=== PATIENT | female | born 1955 | race Caucasian/White ===

== ENCOUNTER 2018-03-30 11:34 | Emergency (ER) | payer MEDICARE, BC ==
[2018-03-30] MEDS ORDERED: 0.9 % SODIUM CHLORIDE 1000ML 1,000 ML IV PRN (11:41)
[2018-03-30] MEDS: 0.9 % SODIUM CHLORIDE 500ML 500 ML IV SCH (11:59)
[2018-03-30 12:13] LABS: HEMATOCRIT 45.2 % (35.0-47.0); HEMOGLOBIN 15.2 gm/dl (11.6-16.0); MEAN CELL VOLUME 87.4 fl (81-97); MEAN CORPUSCULAR HEMOGLOBIN 29.4 pg (27-33); MEAN CORPUSCULAR HGB CONC 33.6 g/dl (32-36); MEAN PLATELET VOLUME 11.5 fl (7.4-10.4); PLATELET COUNT 346 K/uL (130-400); RED BLOOD COUNT 5.17 M/uL (3.80-5.40); RED CELL DISTRIBUTION WIDTH 13.2 % (11.5-14.5); URINE APPEARANCE CLOUDY; URINE BILIRUBIN SMALL (NEGATIVE); URINE BLOOD MODERATE (NEGATIVE); URINE COLOR YELLOW; URINE GLUCOSE (UA) NEGATIVE (NEGATIVE); URINE KETONE NEGATIVE (NEGATIVE); URINE LEUKOCYTE ESTERASE MODERATE (NEGATIVE); URINE NITRITE NEGATIVE (NEGATIVE); URINE UROBILINOGEN 0.2 E.U./dL (0.20 - 1.00); WHITE BLOOD COUNT W/O DIFF 15.6 K/uL (4.2-12.2)
[2018-03-30 12:20] LABS: URINE BACTERIA FEW; URINE EPITHELIAL CELLS 0 - 2 (FEW)
[2018-03-30 12:26] LABS: BLOOD UREA NITROGEN 15 mg/dL (8-23); CREATININE 0.9 mg/dL (0.5-0.9); EST GLOMERULAR FILTRATION RATE > 60 mL/min
[2018-03-30 12:27] LABS: TOTAL PROTEIN 6.9 g/dL (6.6-8.7)
--- NOTE | 2018-03-30 12:27 | Emergency Department Record ---
History of Present Illness - General Chief complaint: Allergic Reaction Stated complaint: ALLERGIC REACTION TO MEDS Time Seen by Provider: 03/30/18 11:40 Source: Patient, RN notes reviewed Mode of Arrival: Ambulatory - History of Present Illness Initial Comments: patient is dry in the throat and started bactrim 3 days ago for a UTI and she is concerned it could be a allergic reaction to bactrim. No rash no wheezing and no SOB or chest pain. She has some nausea and no abdominal pain. Onset/Timin -: Days(s) Exposure: Medication Symptoms: Nausea, Vomiting, Other Treatment Prior to Arrival: None - Related Data Home Medications Medication Instructions Recorded Confirmed Last Taken Cyanocobalamin (Vitamin B-12) 5,000 mcg PO DAILY 03/30/18 03/30/18 03/30/18 [Vitamin B-12] Lansoprazole [Prevacid] 30 mg PO DAILY 03/30/18 03/30/18 03/30/18 Lubiprostone [Amitiza] 24 mcg PO DAILY 03/30/18 03/30/18 03/29/18 Morphine Sulfate 30 mg PO Q12HR 03/30/18 03/30/18 03/30/18 Venlafaxine HCl [Effexor Xr] 150 mg PO DAILY 03/30/18 03/30/18 03/29/18 Previous Rx's Medication Instructions Recorded Nitrofurantoin Macrocrystal 100 mg PO BID #20 capsule 03/30/18 [Macrodantin] Allergies Allergy/AdvReac Type Severity Reaction Status Date / Time sulfamethoxazole AdvReac MUSCLE PAIN Verified 03/30/18 11:45 [From Bactrim] trimethoprim [From Bactrim] AdvReac MUSCLE PAIN Verified 03/30/18 11:45 Travel Screening - Travel/Exposure Within Last 30 Days Have you traveled within the last 30 days?: No - Travel/Exposure Within Last Year Have you traveled outside the [place] in the last year?: No - Additonal Travel Details Have you been exposed to anyone with a communicable illness?: No - Travel Symptoms Symptom Screening: None Review of Systems Reviewed: No additional complaints except as noted below Constitutional: Reports: As per HPI. Denies: Chills, Fever, Malaise, Night sweats, Weakness, Weight change Eyes: Reports: As per HPI. Denies: Eye discharge, Eye pain, Photophobia, Vision change ENT: Reports: As per HPI. Denies: Congestion, Dental pain, Ear pain, Epistaxis , Hearing loss, Throat pain Respiratory: Reports: As per HPI. Denies: Cough, Dyspnea, Hemoptysis, Stridor, Wheezes Cardiovascular: Reports: As per HPI. Denies: Arrhythmia, Chest pain, Dyspnea on exertion, Edema, Murmurs, Orthopnea, Palpitations, Paroxysmal nocturnal dyspnea, Rheumatic Fever, Syncope Endocrine: Reports: As per HPI. Denies: Fatigue, Heat or cold intolerance, Polydipsia, Polyuria Gastrointestinal: Reports: As per HPI, Nausea. Denies: Abdominal pain, Constipation, Diarrhea, Hematemesis, Hematochezia, Melena, Vomiting Genitourinary: Reports: As per HPI. Denies: Abnormal menses, Discharge, Dyspareunia, Dysuria, Frequency, Hematuria, Incontinence, Retention, Urgency Musculoskeletal: Reports: As per HPI. Denies: Arthralgia, Back pain, Gout, Joint swelling, Myalgia, Neck pain Skin: Reports: As per HPI. Denies: Bruising, Change in color, Change in hair/ nails, Lesions, Pruritus, Rash Neurological: Reports: As per HPI. Denies: Abnormal gait, Confusion, Headache, Numbness, Paresthesias, Seizure, Tingling, Tremors, Vertigo, Weakness Psychiatric: Reports: As per HPI. Denies: Anxiety, Auditory hallucinations, Depression, Homicidal thoughts, Suicidal thoughts, Visual hallucinations Hematological/Lymphatic: Reports: As per HPI. Denies: Anemia, Blood Clots, Easy bleeding, Easy bruising, Swollen glands Past Medical History - SOCIAL HISTORY Smoking Status: Former smoker Alcohol Use: Rare Drug Use: None - RESPIRATORY Hx Respiratory Disorders: No - CARDIOVASCULAR Hx Cardio Disorders: No - NEURO Hx Neuro Disorders: No - GI Hx GI Disorders: Yes Hx Reflux: Yes - Hx Genitourinary Disorders: Yes Hx Bladder Problem: Yes Hx UTI: Yes - ENDOCRINE Hx Endocrine Disorders: No - MUSCULOSKELETAL Hx Musculoskeletal Disorders: Yes Hx Arthritis: Yes - PSYCH Hx Psych Problems: Yes Hx Depression: Yes - HEMATOLOGY/ONCOLOGY Hx Hematology/Oncology Disorders: No Family Medical History Any Significant Family History?: No Physical Exam - General General Appearance: Alert, Oriented x3, Cooperative, No acute distress - Head Head exam: Normal inspection - Eye Eye exam: Normal appearance, PERRL Pupils: Normal accommodation - ENT ENT exam: Normal exam, Mucous membranes moist, Normal external ear exam, Normal orophraynx, TM's normal bilaterally Ear exam: Normal external inspection. negative: External canal tenderness Nasal Exam: Normal inspection. negative: Discharge, Sinus tenderness Mouth exam: Normal external inspection, Tongue normal Teeth exam: Normal inspection. negative: Dental caries Throat exam: Normal inspection. negative: Tonsillar erythema, Tonsillar exudate - Neck Neck exam: Normal inspection, Full ROM. negative: Tenderness - Respiratory Respiratory exam: Normal lung sounds bilaterally. negative: Respiratory distress - Cardiovascular Cardiovascular Exam: Regular rate, Normal rhythm, Normal heart sounds - GI/Abdominal GI/Abdominal exam: Soft, Normal bowel sounds. negative: Tenderness - Rectal Rectal exam: Deferred - exam: Deferred - Extremities Extremities exam: Normal inspection, Full ROM, Normal capillary refill. negative: Tenderness - Back Back exam: Reports: Normal inspection, Full ROM. Denies: Muscle spasm, Rash noted, Tenderness - Neurological Neurological exam: Alert, Normal gait, Oriented X3, Reflexes normal - Psychiatric Psychiatric exam: Normal affect, Normal mood - Skin Skin exam: Dry, Intact, Normal color, Warm Course Vital Signs 03/30/18 11:36 Temperature 98.1 F Pulse Rate 103 H Respiratory 18 Rate Blood Pressure 120/73 Pulse Ox 98 - Reevaluation(s) Reevaluation #1: reviewed the urine dont [address] Velasquez's office and she is resistant to bactrim and will swithch to nitrofurantoin which is sensitive 03/30/18 13:31 Medical Decision Making - Data Complexity MDM Data: Labs Ordered and/or Reviewed (UA wbc TNTC) - Lab Data Result diagrams: 03/30/18 11:55 03/30/18 11:55 Lab Results 03/30/18 03/30/18 Range/Units 11:55 11:55 WBC 15.6 H (4.2-12.2) K/uL RBC 5.17 (3.80-5.40) M/uL Hgb 15.2 (11.6-16.0) gm/dl Hct 45.2 (35.0-47.0) % MCV 87.4 (81-97) fl MCH 29.4 (27-33) pg MCHC 33.6 (32-36) g/dl RDW 13.2 (11.5-14.5) % Plt Count 346 (130-400) K/uL MPV 11.5 H (7.4-10.4) fl Eosinophils % Not Reportable Basophils % Not Reportable Urine Color Yellow Urine Appearance Cloudy Urine pH 6.0 (5.0-8.0) Ur Specific [place] >= 1.030 (1.002-1.030) Urine Protein 30 mg/dl H (NEGATIVE) Urine Glucose (UA) Negative (NEGATIVE) Urine Ketones Negative (NEGATIVE) Urine Blood Moderate (NEGATIVE) Urine Nitrite Negative (NEGATIVE) Urine Bilirubin Small H (NEGATIVE) Urine Urobilinogen 0.2 (0.20 - 1.00) E.U./dL Ur Leukocyte Esterase Moderate H (NEGATIVE) Urine RBC 10 - 15 (NONE SEEN) Urine WBC Too numerous to cnt (0-2/hpf) Ur Epithelial Cells 0 - 2 (FEW) Urine Bacteria Few Disposition Clinical Impression: Nausea UTI (urinary tract infection) Qualifiers: Urinary tract infection type: acute cystitis Hematuria presence: without hematuria Qualified Code(s): N30.00 - Acute cystitis without hematuria Disposition: Home, Self-Care Condition: (1) Good Instructions: Urinary Tract Infection in Women (ED) Additional Instructions: follow up with Shruti next week Prescriptions: Nitrofurantoin Macrocrystal [Macrodantin] 100 mg PO BID #20 capsule Forms: Patient Portal Access Time of Disposition: 13:54 Quality - Quality Measures Quality Measures: N/A - Blood Pressure Screening Does Patient Have Any of the Following: No Blood Pressure Classification: Pre-Hypertensive BP Reading Systolic Measurement: 120 Diastolic Measurement: 73 Screening for High Blood Pressure: < Pre-Hypertensive BP, F/U Documented > [ [id number]] Pre-Hypertensive Follow-up Interventions: Referral to alternative/primary care provider.
[2018-03-30 12:29] LABS: GLUCOSE,RANDOM 109 mg/dL (74-109)
[2018-03-30 12:30] LABS: PLATELET ESTIMATE NORMAL (NORMAL)
[2018-03-30 12:32] LABS: ALBUMIN 4.4 g/dL (4.0-5.0); ALKALINE PHOSPHATASE 98 U/L (35-104); ALT/SGPT 19 U/L (<33); AST/SGOT 17 U/L (10.0-35.0)
[2018-03-30 12:33] LABS: BILIRUBIN,DIRECT < 0.2 mg/dL (0-0.3)
[2018-03-30] MEDS: NITROFURANTOIN MONO 100 MG CAPSULE PO ONE (13:24)
[2018-03-30] MEDS: ONDANSETRON HCL IV 4 MG/2 ML VIAL IVP ONE (13:30)
== END 2018-03-30 14:07 | disposition home or self-care (01) ==
LOC: ER 11:34
DX: N30.00 Acute cystitis without hematuria (principal); R11.0 Nausea; Z87.891 Personal history of nicotine dependence
CPT/HCPCS: 80048; 80076; 81001; 85027; 96374; 99284; J2405; J7040